=== PATIENT | male | born 1965 | race African-American/Black ===

== ENCOUNTER 2017-09-02 15:48 | Inpatient (IN) | payer OTHER ==
[2017-09-02 16:44] VITALS: BMI 22.6
--- NOTE | 2017-09-02 20:42 | HP ---
COWS - Scale Resting Pulse: 0= [place] 80 or Below Sweatin= Chills/Flushing Restless Observation: 1= Difficult to Sit Still Pupil Size: 1= Pupils >than Normal Bone or Joint Aches: 2= Severe Diffuse Aches Runny Nose/ Eye Tearin= Nasal Congestion GI Upset > 30mins: 1= Stomach Cramp Tremor Observation: 0= None Yawning Observation: 1= 1-2x During Session Anxiety or Irritability: 2=Irritable/Anxious Goose Flesh Skin: 3=Piloerection COWS Score: 13 Admission ROS S - HPI Chief Complaint: WITHDRAWAL SYMPTOMS Allergies/Adverse Reactions: Allergies Allergy/AdvReac Type Severity Reaction Status Date / Time No Known Allergies Allergy Verified 09/02/17 17:01 History of Present Illness: 52 Y.O. MAN WITH A HISTORY OF HEROIN DEPENDENCE IS HERE SEEKING DETOX. HE WAS LAST HERE IN 2013 AND REPORTS HIS LONGEST PERIOD CLEAN HAS BEEN 17 YEARS. Exam Limitations: No Limitations - Ebola screening Have you traveled outside of the country in the last 21 days: No (N) Have you had contact with anyone from an Ebola affected area: No Have you been sick,other than usual withdrawal symptoms: No Do you have a fever: No - Review of Systems Constitutional: Chills, Loss of Appetite, Night Sweats, Changes in sleep, Unintentional Wgt. Loss EENT: reports: Tearing, Nose Congestion Respiratory: reports: No Symptoms reported Cardiac: reports: No Symptoms Reported GI: reports: Nausea, Abdominal cramping : reports: No Symptoms Reported Integumentary: reports: No Symptoms Reported Neuro: reports: No Symptoms reported Endocrine: reports: No Symptoms Reported Hematology: reports: No Symptoms Reported Psychiatric: reports: Judgement Intact, Mood/Affect Appropiate, Orientated x3 Other Systems: Reviewed and Negative Patient History - Patient Medical History Hx Anemia: No Hx Asthma: Yes (not on any medication) Hx Chronic Obstructive Pulmonary Disease (COPD): No Hx Cancer: No Hx Cardiac Disorders: No Hx Congestive Heart Failure: No Hx Hypertension: No Hx Hypercholesterolemia: No Hx Pacemaker: No HX Cerebrovascular Accident: No Hx Seizures: No Hx Dementia: No Hx Diabetes: No Hx Gastrointestinal Disorders: No Hx Liver Disease: No Hx Genitourinary Disorders: No Hx Sexually Transmitted Disorders: No Hx Renal Disease (ESRD): No Hx Thyroid Disease: No Hx Human Immunodeficiency Virus (HIV): No (neg 2012) Hx Hepatitis C: No Hx Depression: Yes (drug related) Hx Suicide Attempt: No Hx Bipolar Disorder: No Hx Schizophrenia: No - Patient Surgical History Past Surgical History: No Hx Neurologic Surgery: No Hx Cataract Extraction: No Hx Cardiac Surgery: No Hx Lung Surgery: No Hx Breast Surgery: No Hx Breast Biopsy: No Hx Abdominal Surgery: No Hx Appendectomy: No Hx Cholecystectomy: No Hx Genitourinary Surgery: Yes (2006 vasectomy) Hx Section: No Hx Orthopedic Surgery: No Anesthesia Reaction: No - PPD History Previous Implant?: Yes Documented Results: Negative w/proof Implanted On Prior R Admission?: Yes Date: 09/26/13 Results: 0 PPD to be Administered?: Yes - Reproductive History Patient is a Female of Child Bearing Age (11 -55 yrs old): No - Smoking Cessation Smoking history: Current every day smoker Have you smoked in the past 12 months: Yes Aproximately how many cigarettes per day: 10 Hx Chewing Tobacco Use: No Initiated information on smoking cessation: Yes 'Breaking Loose' booklet given: 09/02/17 - Substance & Tx. History Hx Alcohol Use: No Hx Substance Use: Yes Substance Use Type: Heroin Hx Substance Use Treatment: Yes (DETOX: 02/2017) - Substances Abused Heroin Route: Inhalation Frequency: Daily Amount used: 6 bags Age of first use: 20 Date of Last Use: 09/02/17 Family Disease History - Family Disease History Family Disease History: CA: Mother (spinal cord?) Admission Physical Exam BHS - Vital Signs Vital Signs: Vital Signs - 24 hr 09/02/17 16:42 Temperature 97.9 F Pulse Rate 62 Respiratory 18 Rate Blood Pressure 128/71 - Physical General Appearance: Yes: No Apparent Distress, Nourished, Appropriately Dressed , Anxious HEENTM: Yes: Hearing grossly Normal, Normal ENT Inspection, Normocephalic, Normal Voice Respiratory: Yes: Chest Non-Tender, Lungs Clear, Normal Breath Sounds, No Respiratory Distress, No Accessory Muscle Use Neck: Yes: No masses,lesions,Nodules, Trachea in good position Breast: Yes: Breast Exam Deferred Cardiology: Yes: Regular Rhythm, Regular Rate Abdominal: Yes: Normal Bowel Sounds, Non Tender Genitourinary: Yes: Other (NO COMPLAINTS REPORTED) Back: Yes: Normal Inspection Musculoskeletal: Yes: full range of Motion, Gait Steady Extremities: Yes: Normal Capillary Refill, Normal Inspection, Normal Range of Motion, Non-Tender Neurological: Yes: drug abuse worker II-XII NML intact, Fully Oriented, Motor Strength 5/5, Normal Mood/Affect, Normal Response Integumentary: Yes: Normal Color, Warm Lymphatic: Yes: Within Normal Limits - Diagnostic (1) Asthma Current Visit: Yes Status: Chronic (2) Nicotine dependence Current Visit: Yes Status: Chronic (3) Opioid dependence with withdrawal Current Visit: Yes Status: Chronic Cleared for Admission [facility] - Detox or Rehab [facility] Level of Care: Medically Managed Detox Regimen/Protocol: Methadone [facility] Breath Alcohol Content Breath Alcohol Content: 0 Urine Drug Screen - Results Drug Screen Negative: No Urine Drug Screen Results: MALLORY-Cocaine, OPI-Opiates
[2017-09-02] MEDS ORDERED: IBUPROFEN 400 MG TABLET (FP) PO PRN (20:46)
[2017-09-02] MEDS ORDERED: MENTHOL/PHENOL 1 EACH UD MM PRN (20:46)
[2017-09-02] MEDS ORDERED: MAG HYDROX/AL HYDROX/SIMETH 30 ML UNIT-DOSE CUP PO PRN (20:46)
[2017-09-02] MEDS ORDERED: guaiFENesin/D-METHORPHAN HB 10 ML UNIT-DOSE CUPS PO PRN (20:46)
[2017-09-02] MEDS ORDERED: ACETAMINOPHEN 325 MG TABLET (FP) PO PRN (20:46)
[2017-09-02] MEDS ORDERED: MAGNESIUM CITRATE 300 ML BOTTLE PO PRN (20:46)
[2017-09-02] MEDS ORDERED: MAGNESIUM HYDROX 2400MG/30ML ORAL SUSPENSION 30 ML CUP PO PRN (20:46)
[2017-09-02] MEDS ORDERED: METHADONE HCL 10 MG TABLET (FOR DETOX USE ONLY) PO ONE ×2 (20:46→23:00)
[2017-09-02] MEDS ORDERED: NICOTINE POLACRILEX 2 MG GUM BC PRN (20:46)
[2017-09-02] MEDS ORDERED: P-EPHED 60MG/TRIPROLIDI 2.5MG TABLET PO PRN (20:46)
[2017-09-02] MEDS ORDERED: LOPERAMIDE HCL 2 MG CAPSULE PO PRN (20:46)
[2017-09-02] MEDS ORDERED: ALBUTEROL SO4 18 GM HFA INHALER IH PRN ×3 (20:48→20:51)
[2017-09-02] MEDS ORDERED: diphenhydrAMINE HCL 25 MG CAPSULE (FP) PO PRN (20:49)
[2017-09-02] MEDS: THIAMINE HCL 100 MG TABLET (FP) PO SCH (22:07)
[2017-09-02 23:29] LABS: URINE APPEARANCE CLEAR; URINE BILIRUBIN NEGATIVE (NEGATIVE); URINE BLOOD NEGATIVE (NEGATIVE); URINE COLOR YELLOW; URINE GLUCOSE (UA) NEGATIVE (NEGATIVE); URINE KETONE NEGATIVE (NEGATIVE); URINE LEUK ESTERASE NEGATIVE (NEGATIVE); URINE NITRITE NEGATIVE (NEGATIVE); URINE PROTEIN NEGATIVE (NEGATIVE)
[2017-09-03] MEDS ORDERED: METHADONE HCL 10 MG TABLET (FOR DETOX USE ONLY) PO ONE (10:00)
[2017-09-03] MEDS: NICOTINE 14 MG/24 HOURS TOPICAL PATCH TD SCH (10:03)
[2017-09-03] MEDS: diazePAM 5 MG TABLET PO PRN ×3 (10:03→22:10)
[2017-09-03] MEDS: PRENATAL VITAMINS W/ FOLIC ACID TABLET (FP) PO SCH (10:03)
[2017-09-03 10:13] LABS: ALBUMIN 3.2 g/dl (3.4-5.0); ANION GAP 5 (8-16); BLOOD UREA NITROGEN 11 mg/dL (7-18); CHLORIDE 106 mmol/L (98-107); CO2 30 mmol/L (21-32); CREATININE 0.9 mg/dL (0.7-1.3); GLUCOSE,RANDOM 87 mg/dL (74-106); POTASSIUM 4.3 mmol/L (3.5-5.1); SGOT/AST 11 U/L (15-37); SGPT/ALT 15 U/L (12-78); SODIUM 141 mmol/L (136-145)
[2017-09-03 10:15] LABS: ALK PHOS 57 U/L (45-117); BILIRUBIN,TOTAL 0.8 mg/dL (0.2-1.0); TOT PROT 5.9 g/dl (6.4-8.2)
[2017-09-03 10:23] LABS: HEMATOCRIT 35.8 % (35.4-49); HEMOGLOBIN 11.7 GM/dL (11.7-16.9); MCH 29.3 pg (25.7-33.7); MCHC 32.7 g/dl (32.0-35.9); MEAN CELL VOLUME 89.7 fl (80-96); MEAN PLT VOLUME 9.1 fl (7.5-11.1); PLATELET COUNT 204 K/MM3 (134-434); RBC 3.99 M/mm3 (4.00-5.60); RDW 15.4 % (11.9-15.9); WHITE BLOOD COUNT 3.5 K/mm3 (4.0-10.0)
--- NOTE | 2017-09-03 11:25 | PN ---
BHS COWS - Scale Resting Pulse: 1= [place] 81-100 Sweatin= Chills/Flushing Restless Observation: 3= Extraneous Movement Pupil Size: 0= Normal to Room Light Bone or Joint Aches: 4=Acute Joint/Muscle Pain Runny Nose/ Eye Tearin= Nasal Congestion GI Upset > 30mins: 1= Stomach Cramp Tremor Observation of Outstretched Hands: 2= Slight Tremor Visible Yawning Observation: 1= 1-2x During Session Anxiety or Irritability: 2=Irritable/Anxious Goose Flesh Skin: 0=Smooth Skin COWS Score: 16 S Progress Note (SOAP) Subjective: ANXIETY,SWEATS,CHILLS,MUSCLE ACHES,COUGHING WITH CLEAR SPUTUM,RUNNY NOSE. Objective: 09/03/17 11:23 Vital Signs Temperature 96.4 F L 09/03/17 09:06 Pulse Rate 75 09/03/17 09:06 Respiratory Rate 16 09/03/17 09:06 Blood Pressure 141/77 09/03/17 09:06 O2 Sat by Pulse Oximetry (%) Laboratory Last Values WBC 3.5 K/mm3 (4.0-10.0) L 09/03/17 07:00 RBC 3.99 M/mm3 (4.00-5.60) L 09/03/17 07:00 Hgb 11.7 GM/dL (11.7-16.9) 09/03/17 07:00 Hct 35.8 % (35.4-49) 09/03/17 07:00 MCV 89.7 fl (80-96) 09/03/17 07:00 MCH 29.3 pg (25.7-33.7) 09/03/17 07:00 MCHC 32.7 g/dl (32.0-35.9) 09/03/17 07:00 RDW 15.4 % (11.9-15.9) 09/03/17 07:00 Plt Count 204 K/MM3 (134-434) D 09/03/17 07:00 MPV 9.1 fl (7.5-11.1) 09/03/17 07:00 Sodium 141 mmol/L (136-145) 09/03/17 07:00 Potassium 4.3 mmol/L (3.5-5.1) 09/03/17 07:00 Chloride 106 mmol/L (98-107) 09/03/17 07:00 Carbon Dioxide 30 mmol/L (21-32) 09/03/17 07:00 Anion Gap 5 (8-16) L 09/03/17 07:00 BUN 11 mg/dL (7-18) D 09/03/17 07:00 Creatinine 0.9 mg/dL (0.7-1.3) 09/03/17 07:00 Creat Clearance w eGFR > 60 (>60) 09/03/17 07:00 Random Glucose 87 mg/dL (74-106) 09/03/17 07:00 Calcium 8.0 mg/dL (8.5-10.1) L 09/03/17 07:00 Total Bilirubin 0.8 mg/dL (0.2-1.0) D 09/03/17 07:00 AST 11 U/L (15-37) L 09/03/17 07:00 ALT 15 U/L (12-78) 09/03/17 07:00 Alkaline Phosphatase 57 U/L (45-117) 09/03/17 07:00 Total Protein 5.9 g/dl (6.4-8.2) L 09/03/17 07:00 Albumin 3.2 g/dl (3.4-5.0) L 09/03/17 07:00 Urine Color Yellow 09/02/17 Unknown Urine Appearance Clear 09/02/17 Unknown Urine pH 6.0 (5.0-8.0) 09/02/17 Unknown Ur Specific [place] 1.024 (1.001-1.035) 09/02/17 Unknown Urine Protein Negative (NEGATIVE) 09/02/17 Unknown Urine Glucose (UA) Negative (NEGATIVE) 09/02/17 Unknown Urine Ketones Negative (NEGATIVE) 09/02/17 Unknown Urine Blood Negative (NEGATIVE) 09/02/17 Unknown Urine Nitrite Negative (NEGATIVE) 09/02/17 Unknown Urine Bilirubin Negative (NEGATIVE) 09/02/17 Unknown Urine Urobilinogen 2.0 mg/dL (0.2-1.0) 09/02/17 Unknown Ur Leukocyte Esterase Negative (NEGATIVE) 09/02/17 Unknown LUNGS CLEAR TO A/P Assessment: 09/03/17 11:23 WITHDRAWAL SX URI Plan: CONTINUE DETOX MOTRIN PRN ROBITUSSIN DM DIRECTED.
--- NOTE | 2017-09-03 14:09 | EKG ---
Test Reason : Blood Pressure : / mmHG Vent. Rate : 054 BPM Atrial Rate : 054 BPM P-R Int : 164 ms QRS Dur : 078 ms QT Int : 412 ms P-R-T Axes : 076 070 057 degrees QTc Int : 390 ms SINUS BRADYCARDIA NONSPECIFIC ST ABNORMALITY ABNORMAL ECG NO PREVIOUS ECGS AVAILABLE Confirmed by MD Levon, Jj ([id number]) on 09/03/2017 2:08:59 PM Referred By: Confirmed By:Jj Dos Santos MD
[2017-09-03] MEDS: THIAMINE HCL 100 MG TABLET (FP) PO SCH (22:10)
[2017-09-04] MEDS: TRIMETHOBENZAMIDE HCL 200MG/2ML INJ IM PRN ×2 (09:15→20:58)
[2017-09-04] MEDS: PRENATAL VITAMINS W/ FOLIC ACID TABLET (FP) PO SCH (09:18)
[2017-09-04] MEDS: diazePAM 5 MG TABLET PO PRN ×2 (09:19→22:01)
[2017-09-04] MEDS: NICOTINE 14 MG/24 HOURS TOPICAL PATCH TD SCH (09:19)
[2017-09-04] MEDS ORDERED: METHADONE HCL 5 MG TABLET (FOR DETOX USE ONLY) PO ONE (10:00)
--- NOTE | 2017-09-04 10:43 | PN ---
BHS COWS - Scale Resting Pulse: 0= [place] 80 or Below Sweatin= Chills/Flushing Restless Observation: 3= Extraneous Movement Pupil Size: 2= Moderately Dilated Bone or Joint Aches: 4=Acute Joint/Muscle Pain Runny Nose/ Eye Tearin= Runny Nose/Eyes GI Upset > 30mins: 1= Stomach Cramp Tremor Observation of Outstretched Hands: 2= Slight Tremor Visible Yawning Observation: 1= 1-2x During Session Anxiety or Irritability: 2=Irritable/Anxious Goose Flesh Skin: 0=Smooth Skin COWS Score: 18 BHS Progress Note (SOAP) Subjective: ANXIETY,SWEATS/CHILLS,NASAL CONGESTIONS,NAUSEA/VOMITING. Objective: 09/04/17 10:43 Vital Signs Temperature 99.0 F 09/04/17 09:05 Pulse Rate 62 09/04/17 09:05 Respiratory Rate 20 09/04/17 09:05 Blood Pressure 128/78 09/04/17 09:05 O2 Sat by Pulse Oximetry (%) Laboratory Last Values WBC 3.5 K/mm3 (4.0-10.0) L 09/03/17 07:00 RBC 3.99 M/mm3 (4.00-5.60) L 09/03/17 07:00 Hgb 11.7 GM/dL (11.7-16.9) 09/03/17 07:00 Hct 35.8 % (35.4-49) 09/03/17 07:00 MCV 89.7 fl (80-96) 09/03/17 07:00 MCH 29.3 pg (25.7-33.7) 09/03/17 07:00 MCHC 32.7 g/dl (32.0-35.9) 09/03/17 07:00 RDW 15.4 % (11.9-15.9) 09/03/17 07:00 Plt Count 204 K/MM3 (134-434) D 09/03/17 07:00 MPV 9.1 fl (7.5-11.1) 09/03/17 07:00 Sodium 141 mmol/L (136-145) 09/03/17 07:00 Potassium 4.3 mmol/L (3.5-5.1) 09/03/17 07:00 Chloride 106 mmol/L (98-107) 09/03/17 07:00 Carbon Dioxide 30 mmol/L (21-32) 09/03/17 07:00 Anion Gap 5 (8-16) L 09/03/17 07:00 BUN 11 mg/dL (7-18) D 09/03/17 07:00 Creatinine 0.9 mg/dL (0.7-1.3) 09/03/17 07:00 Creat Clearance w eGFR > 60 (>60) 09/03/17 07:00 Random Glucose 87 mg/dL (74-106) 09/03/17 07:00 Calcium 8.0 mg/dL (8.5-10.1) L 09/03/17 07:00 Total Bilirubin 0.8 mg/dL (0.2-1.0) D 09/03/17 07:00 AST 11 U/L (15-37) L 09/03/17 07:00 ALT 15 U/L (12-78) 09/03/17 07:00 Alkaline Phosphatase 57 U/L (45-117) 09/03/17 07:00 Total Protein 5.9 g/dl (6.4-8.2) L 09/03/17 07:00 Albumin 3.2 g/dl (3.4-5.0) L 09/03/17 07:00 Urine Color Yellow 09/02/17 Unknown Urine Appearance Clear 09/02/17 Unknown Urine pH 6.0 (5.0-8.0) 09/02/17 Unknown Ur Specific [place] 1.024 (1.001-1.035) 09/02/17 Unknown Urine Protein Negative (NEGATIVE) 09/02/17 Unknown Urine Glucose (UA) Negative (NEGATIVE) 09/02/17 Unknown Urine Ketones Negative (NEGATIVE) 09/02/17 Unknown Urine Blood Negative (NEGATIVE) 09/02/17 Unknown Urine Nitrite Negative (NEGATIVE) 09/02/17 Unknown Urine Bilirubin Negative (NEGATIVE) 09/02/17 Unknown Urine Urobilinogen 2.0 mg/dL (0.2-1.0) 09/02/17 Unknown Ur Leukocyte Esterase Negative (NEGATIVE) 09/02/17 Unknown RPR Titer Nonreactive (NONREACTIVE) 09/03/17 07:00 Assessment: 09/04/17 10:43 WITHDRAWAL SX Plan: CONTINUE DETOX TIGAN PRN DIRECTED
[2017-09-04] MEDS: THIAMINE HCL 100 MG TABLET (FP) PO SCH (22:01)
[2017-09-05] MEDS: TRIMETHOBENZAMIDE HCL 200MG/2ML INJ IM PRN (08:28)
[2017-09-05] MEDS: diazePAM 5 MG TABLET PO PRN (09:15)
[2017-09-05] MEDS ORDERED: METHADONE HCL 5 MG TABLET (FOR DETOX USE ONLY) PO ONE (10:00)
[2017-09-05] MEDS: NICOTINE 14 MG/24 HOURS TOPICAL PATCH TD SCH (10:08)
[2017-09-05] MEDS: PRENATAL VITAMINS W/ FOLIC ACID TABLET (FP) PO SCH (10:09)
--- NOTE | 2017-09-05 12:14 | PN ---
S Progress Note (SOAP) Subjective: ANXIETY, SWEATS,NAUSEA/VOMITING, NASAL CONGESTION, COUGHING, INTERMITTENT SLEEP. Objective: 09/05/17 12:13 Vital Signs Temperature 98.6 F 09/05/17 09:39 Pulse Rate 92 H 09/05/17 09:39 Respiratory Rate 20 09/05/17 09:39 Blood Pressure 129/94 09/05/17 09:39 O2 Sat by Pulse Oximetry (%) Laboratory Last Values WBC 3.5 K/mm3 (4.0-10.0) L 09/03/17 07:00 RBC 3.99 M/mm3 (4.00-5.60) L 09/03/17 07:00 Hgb 11.7 GM/dL (11.7-16.9) 09/03/17 07:00 Hct 35.8 % (35.4-49) 09/03/17 07:00 MCV 89.7 fl (80-96) 09/03/17 07:00 MCH 29.3 pg (25.7-33.7) 09/03/17 07:00 MCHC 32.7 g/dl (32.0-35.9) 09/03/17 07:00 RDW 15.4 % (11.9-15.9) 09/03/17 07:00 Plt Count 204 K/MM3 (134-434) D 09/03/17 07:00 MPV 9.1 fl (7.5-11.1) 09/03/17 07:00 Sodium 141 mmol/L (136-145) 09/03/17 07:00 Potassium 4.3 mmol/L (3.5-5.1) 09/03/17 07:00 Chloride 106 mmol/L (98-107) 09/03/17 07:00 Carbon Dioxide 30 mmol/L (21-32) 09/03/17 07:00 Anion Gap 5 (8-16) L 09/03/17 07:00 BUN 11 mg/dL (7-18) D 09/03/17 07:00 Creatinine 0.9 mg/dL (0.7-1.3) 09/03/17 07:00 Creat Clearance w eGFR > 60 (>60) 09/03/17 07:00 Random Glucose 87 mg/dL (74-106) 09/03/17 07:00 Calcium 8.0 mg/dL (8.5-10.1) L 09/03/17 07:00 Total Bilirubin 0.8 mg/dL (0.2-1.0) D 09/03/17 07:00 AST 11 U/L (15-37) L 09/03/17 07:00 ALT 15 U/L (12-78) 09/03/17 07:00 Alkaline Phosphatase 57 U/L (45-117) 09/03/17 07:00 Total Protein 5.9 g/dl (6.4-8.2) L 09/03/17 07:00 Albumin 3.2 g/dl (3.4-5.0) L 09/03/17 07:00 Urine Color Yellow 09/02/17 Unknown Urine Appearance Clear 09/02/17 Unknown Urine pH 6.0 (5.0-8.0) 09/02/17 Unknown Ur Specific [place] 1.024 (1.001-1.035) 09/02/17 Unknown Urine Protein Negative (NEGATIVE) 09/02/17 Unknown Urine Glucose (UA) Negative (NEGATIVE) 09/02/17 Unknown Urine Ketones Negative (NEGATIVE) 09/02/17 Unknown Urine Blood Negative (NEGATIVE) 09/02/17 Unknown Urine Nitrite Negative (NEGATIVE) 09/02/17 Unknown Urine Bilirubin Negative (NEGATIVE) 09/02/17 Unknown Urine Urobilinogen 2.0 mg/dL (0.2-1.0) 09/02/17 Unknown Ur Leukocyte Esterase Negative (NEGATIVE) 09/02/17 Unknown RPR Titer Nonreactive (NONREACTIVE) 09/03/17 07:00 LUNGS CLEAR TO A/P Assessment: 09/05/17 12:14 WITHDRAWAL SX Plan: CONTINUE DETOX MUCINEX DIRECTED
[2017-09-05] MEDS: THIAMINE HCL 100 MG TABLET (FP) PO SCH (22:10)
[2017-09-05] MEDS: hydrOXYzine PAMOATE 50 MG CAPSULE (FP) PO PRN (22:10)
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
[2017-09-06] MEDS: NICOTINE 14 MG/24 HOURS TOPICAL PATCH TD SCH (09:52)
[2017-09-06] MEDS: hydrOXYzine PAMOATE 50 MG CAPSULE (FP) PO PRN ×2 (09:52→17:34)
[2017-09-06] MEDS: PRENATAL VITAMINS W/ FOLIC ACID TABLET (FP) PO SCH (09:52)
[2017-09-06] MEDS ORDERED: METHADONE HCL 10 MG TABLET (FOR DETOX USE ONLY) PO ONE (10:00)
--- NOTE | 2017-09-06 12:45 | PN ---
S Progress Note (SOAP) Subjective: PT EXPRESSED ANGER,AGITATIONS, AND PHYSICAL AGGRESSION(SEE PREVIOUS NOTE) STATING "I'M WITHDRAWING". "YOU ARE NOT HELPING ME". PT HAS BEEN ON TIGAN PRN FOR NAUSEA/VOMITING. DENIES N/V TODAY. Objective: 09/06/17 12:49 Vital Signs - 8 hr 09/06/17 06:17 Temperature 97.1 F L Pulse Rate 65 Respiratory 18 Rate Blood Pressure 107/75 Laboratory Last Values WBC 3.5 K/mm3 (4.0-10.0) L 09/03/17 07:00 RBC 3.99 M/mm3 (4.00-5.60) L 09/03/17 07:00 Hgb 11.7 GM/dL (11.7-16.9) 09/03/17 07:00 Hct 35.8 % (35.4-49) 09/03/17 07:00 MCV 89.7 fl (80-96) 09/03/17 07:00 MCH 29.3 pg (25.7-33.7) 09/03/17 07:00 MCHC 32.7 g/dl (32.0-35.9) 09/03/17 07:00 RDW 15.4 % (11.9-15.9) 09/03/17 07:00 Plt Count 204 K/MM3 (134-434) D 09/03/17 07:00 MPV 9.1 fl (7.5-11.1) 09/03/17 07:00 Sodium 141 mmol/L (136-145) 09/03/17 07:00 Potassium 4.3 mmol/L (3.5-5.1) 09/03/17 07:00 Chloride 106 mmol/L (98-107) 09/03/17 07:00 Carbon Dioxide 30 mmol/L (21-32) 09/03/17 07:00 Anion Gap 5 (8-16) L 09/03/17 07:00 BUN 11 mg/dL (7-18) D 09/03/17 07:00 Creatinine 0.9 mg/dL (0.7-1.3) 09/03/17 07:00 Creat Clearance w eGFR > 60 (>60) 09/03/17 07:00 Random Glucose 87 mg/dL (74-106) 09/03/17 07:00 Calcium 8.0 mg/dL (8.5-10.1) L 09/03/17 07:00 Total Bilirubin 0.8 mg/dL (0.2-1.0) D 09/03/17 07:00 AST 11 U/L (15-37) L 09/03/17 07:00 ALT 15 U/L (12-78) 09/03/17 07:00 Alkaline Phosphatase 57 U/L (45-117) 09/03/17 07:00 Total Protein 5.9 g/dl (6.4-8.2) L 09/03/17 07:00 Albumin 3.2 g/dl (3.4-5.0) L 09/03/17 07:00 Urine Color Yellow 09/02/17 Unknown Urine Appearance Clear 09/02/17 Unknown Urine pH 6.0 (5.0-8.0) 09/02/17 Unknown Ur Specific [place] 1.024 (1.001-1.035) 09/02/17 Unknown Urine Protein Negative (NEGATIVE) 09/02/17 Unknown Urine Glucose (UA) Negative (NEGATIVE) 09/02/17 Unknown Urine Ketones Negative (NEGATIVE) 09/02/17 Unknown Urine Blood Negative (NEGATIVE) 09/02/17 Unknown Urine Nitrite Negative (NEGATIVE) 09/02/17 Unknown Urine Bilirubin Negative (NEGATIVE) 09/02/17 Unknown Urine Urobilinogen 2.0 mg/dL (0.2-1.0) 09/02/17 Unknown Ur Leukocyte Esterase Negative (NEGATIVE) 09/02/17 Unknown RPR Titer Nonreactive (NONREACTIVE) 09/03/17 07:00 Assessment: 09/06/17 12:49 WITHDRAWAL SX Plan: CONTINUE DETOX UPON RETURN FROM ER
--- NOTE | 2017-09-06 16:14 | PN ---
[facility] Progress Note Note: PT RETURNED TO [facility] AFTER 1:00 PM. GRINDER SET UP OPERATOR CENTERLESS AND PT'S NURSE, ATIYA GAO WENT TO SAW PT IN HIS ROOM AFTER RETURN FROM ER. NAD. CT SCAN W/O CONTRAST RESULT WITH NO GROSS PATHOLOGY.
[2017-09-06] MEDS: THIAMINE HCL 100 MG TABLET (FP) PO SCH (22:28)
[2017-09-07 01:32] VITALS: BP 95/53; PULSE 60; TEMP 97.1
[2017-09-07] MEDS ORDERED: METHADONE HCL 5 MG TABLET (FOR DETOX USE ONLY) PO ONE (06:00)
[2017-09-07] MEDS: PRENATAL VITAMINS W/ FOLIC ACID TABLET (FP) PO SCH (10:15)
[2017-09-07] MEDS: NICOTINE 14 MG/24 HOURS TOPICAL PATCH TD SCH (10:15)
--- NOTE | 2017-09-07 18:53 | DS ---
[facility] Summary Admission Date: 09/02/17 Discharge Date: 09/07/17 - History Present History: Opioid Dependence Additional Comments: PATIENT GOING TO [facility] ([facility] FOR AFTERCARE. PATIENT WAS DISCHARGED FROM DETOX UNIT IN STABLE MEDICAL CONDITION. Pertinent Past History: Asthma, Nicotine Dependence, Depression, Head Trauma, Upper Respiratory Infection. - Physical Exam Results Vital Signs: Vital Signs Temperature 97.1 F L 09/07/17 01:49 Pulse Rate 60 09/07/17 01:49 Respiratory Rate 17 09/07/17 03:30 Blood Pressure 95/53 09/07/17 01:49 O2 Sat by Pulse Oximetry (%) Pertinent Admission Physical Exam Findings: WITHDRAWAL SYMPTOMS. Laboratory Tests 09/02/17 09/03/17 09/03/17 Unknown 07:00 07:00 WBC 3.5 L RBC 3.99 L Hgb 11.7 Hct 35.8 MCV 89.7 MCH 29.3 MCHC 32.7 RDW 15.4 Plt Count 204 D MPV 9.1 Sodium 141 Potassium 4.3 Chloride 106 Carbon Dioxide 30 Anion Gap 5 L BUN 11 D Creatinine 0.9 Creat Clearance w eGFR > 60 Random Glucose 87 Calcium 8.0 L Total Bilirubin 0.8 D AST 11 L ALT 15 Alkaline Phosphatase 57 Total Protein 5.9 L Albumin 3.2 L Urine Color Yellow Urine Appearance Clear Urine pH 6.0 Ur Specific [place] 1.024 Urine Protein Negative Urine Glucose (UA) Negative Urine Ketones Negative Urine Blood Negative Urine Nitrite Negative Urine Bilirubin Negative Urine Urobilinogen 2.0 Ur Leukocyte Esterase Negative RPR Titer 09/03/17 07:00 WBC RBC Hgb Hct MCV MCH MCHC RDW Plt Count MPV Sodium Potassium Chloride Carbon Dioxide Anion Gap BUN Creatinine Creat Clearance w eGFR Random Glucose Calcium Total Bilirubin AST ALT Alkaline Phosphatase Total Protein Albumin Urine Color Urine Appearance Urine pH Ur Specific [place] Urine Protein Urine Glucose (UA) Urine Ketones Urine Blood Urine Nitrite Urine Bilirubin Urine Urobilinogen Ur Leukocyte Esterase RPR Titer Nonreactive LABS NOTED. - Treatment Hospital Course: Detox Protocol Followed, Detoxed Safely, Responded well, Discharged Condition Good, Rehab Referral Accepted Patient has Accepted a Rehab Referral to: [facility] ([facility]). - Medication Discharge Medications: Ambulatory Orders Albuterol Sulfate [Proventil HFA Inhaler -] 1 - 2 inh PO QID PRN #1 [email or web address] 09/29/13 - Diagnosis (1) Nicotine dependence Status: Acute Qualifiers: Nicotine product type: cigarettes Substance use status: in withdrawal Qualified Code(s): F17.213 - Nicotine dependence, cigarettes, with withdrawal (2) Opioid dependence with withdrawal Status: Acute (3) Substance induced mood disorder Status: Acute (4) URI (upper respiratory infection) Status: Acute Qualifiers: URI type: unspecified viral URI Qualified Code(s): J06.9 - Acute upper respiratory infection, unspecified (5) Asthma Status: Chronic Qualifiers: Asthma severity: mild Asthma persistence: unspecified Asthma complication type: uncomplicated Qualified Code(s): J45.909 - Unspecified asthma, uncomplicated (6) Head trauma Status: Acute Qualifiers: Encounter type: initial encounter Qualified Code(s): S09.90XA - Unspecified injury of head, initial encounter - AMA Did Patient Leave Against Medical Advice: No
== END 2017-09-07 09:20 | disposition home or self-care (01) | DRG 897 ==
LOC: YASAS 15:48 → Y3N 17:41
PROVIDERS: ADMIT Internal Medicine; ATTEND Internal Medicine
PROC: HZ2ZZZZ Detoxification Services for Substance Abuse Treatment (ICD-10-PCS; principal; 2017-09-02)
DX: F11.23 Opioid dependence with withdrawal (principal); F17.213 Nicotine dependence, cigarettes, with withdrawal; F19.24 Other psychoactive substance dependence with psychoactive substance-induced mood disorder; J45.909 Unspecified asthma, uncomplicated; J06.9 Acute upper respiratory infection, unspecified; S09.8XXA Other specified injuries of head, initial encounter; W19.XXXA Unspecified fall, initial encounter; Y93.89 Activity, other specified; Y92.238 Other place in hospital as the place of occurrence of the external cause
CPT/HCPCS: 36415; 80053; 81003; 85027; 86593; 93005; 93010

== ENCOUNTER 2017-09-06 10:14 | Emergency (ER) | payer OTHER ==
[2017-09-06 10:37] VITALS: TEMP 98.1; BMI 26.6
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
[2017-09-06 12:47] VITALS: BP 129/74; PULSE 85
== END 2017-09-06 12:52 | disposition home or self-care (01) ==
LOC: JER 10:14
DX: S09.90XA Unspecified injury of head, initial encounter (principal); F17.210 Nicotine dependence, cigarettes, uncomplicated; J45.909 Unspecified asthma, uncomplicated
CPT/HCPCS: 70450-TC; 99281-25